=== PATIENT | male | born 1990 | race Caucasian/White ===

== ENCOUNTER 2019-04-18 06:14 | Emergency (ER) | payer OTHER ==
[~2019-04-18] VITALS: Ht 185.4 cm; Wt 80.0 kg
[2019-04-18 06:20] VITALS: BP 148/80
[2019-04-18] MEDS ORDERED: DIPH,PERTUSS(ACELL),TET VAC/PF 0.5 ML IM-VACC ONE ×2 (07:00→07:10)
--- NOTE | 2019-04-18 07:15 | NUR ---
BEDSIDE REPORT FROM GEORGE HARRISON, PT RESTING IN [facility] WITH SITTER AT DOORWAY. PT TO GET TDAP AND DRESSING. LEGAL HOLD TO BE LIFTED AND PT TO BE DISCHARGED.
== END 2019-04-18 08:04 | disposition home or self-care (01) ==
LOC: ED 07:55
DX: S60.221A Contusion of right hand, initial encounter (principal); W18.30XA Fall on same level, unspecified, initial encounter; Y92.59 Other trade areas as the place of occurrence of the external cause; Y99.8 Other external cause status; Y93.89 Activity, other specified
CPT/HCPCS: 90471; 90715; 99283